=== PATIENT | male | born 2000 | race Caucasian/White ===

== ENCOUNTER 2022-04-08 10:01 | Emergency (ER) | payer OTHER, SELFPAY ==
[2022-04-08 10:23] VITALS: BP 144/82; PULSE 108; RESP 18; TEMP 38.8; O2SAT 99
--- NOTE | 2022-04-08 10:38 | ED.URI ---
HPI - URI/Sore Throat General Chief Complaint: Upper Respiratory Infection Stated Complaint: sorethroat,cough,fever Time Seen by Provider: 04/08/22 10:25 Source: patient Mode of arrival: ambulatory Limitations: no limitations History of Present Illness HPI Narrative: Patient presents today complaining of sore throat, cough, postnasal drip, body aches, fever up to 100 since yesterday. He has been taking ibuprofen with some relief. Currently rates pain 4/10. History of tonsillectomy. Reports recent contact with persons diagnosed with COVID-19. He has been vaccinated against COVID-19. Review of Systems Review of Systems: CONSTITUTIONAL: Denies chills, or sweats.+ Fever, body aches EYES: Denies visual changes, redness, or discharge. ENT: Denies rhinorrhea, congestion, or otalgia.+ Sore throat, postnasal drip CARDIOVASCULAR: Denies chest pain, palpitations, or edema. RESPIRATORY: Denies dyspnea.+ Cough GASTROINTESTINAL: Denies abdominal pain, nausea, vomiting, or diarrhea. GENITOURINARY: Denies dysuria or hematuria. SKIN: Denies rash, itching, or wounds. MUSCULOSKELETAL: Denies back pain, joint pain, or myalgia. NEUROLOGIC: Denies headache, numbness, tingling, or weakness. PSYCH: Denies depression or anxiety. [facility] Surgical History Surgical History (Updated 04/08/22 @ 10:40 by Sonia Reed, [facility], ) Hx of tonsillectomy Comments At time of signature, I have reviewed and agree with nursing past medical, surgical, social and family history unless otherwise noted. Please see nursing chart for further information. There is no relevant family history pertinent to the presenting complaint Exam Narrative: GENERAL: Well-appearing, well-nourished, and in no acute distress. HEAD: Normocephalic, atraumatic. EYES: EOMI. No redness or drainage. Conjunctivae normal. ENT: Mucous membranes pink and moist. Nares clear. No rhinorrhea. TMs normal bilaterally. Throat mildly erythematous without edema or exudate. Uvula midline. NECK: Normal AROM. Supple. No lymphadenopathy. CHEST: No respiratory distress. Clear to auscultation. HEART: Regular rate and rhythm. No murmur appreciated. Normal peripheral pulses. EXTREMITIES: Normal range of motion. No edema. SKIN: Warm, dry, no rash. Capillary refill normal. Normal skin turgor. NEURO: No focal deficits. Alert and oriented x3. Gait steady. PSYCH: Normal affect. No signs of depression or anxiety. Course Course Emergency Course: Discussed lab results with patient. He would like a PCR test for COVID. Level of Care: Express Care Visit Vital Signs Vital signs: Vital Signs Temperature 102 F H 04/08/22 10:23 Pulse Rate 108 H 04/08/22 10:23 Respiratory Rate 18 04/08/22 10:23 Blood Pressure 144/82 H 04/08/22 10:23 Pulse Oximetry 99 04/08/22 10:23 Oxygen Delivery Room Air 04/08/22 10:23 Temperature 102 F H 04/08/22 10:23 Pulse Rate 108 H 04/08/22 10:23 Respiratory Rate 18 04/08/22 10:23 Blood Pressure 144/82 H 04/08/22 10:23 Pulse Oximetry 99 04/08/22 10:23 Oxygen Delivery Room Air 04/08/22 10:31 Reviewed. Pt has been instructed to follow up with his PCP regarding his elevated blood pressure today. MDM - URI/Sore Throat Differential Diagnosis Differential diagnosis: Likely upper respiratory infection, viral infection, influenza, pharyngitis and other (COVID-19, strep throat) Lab Data Attestation: I reviewed the patient's lab results. Labs: Lab Results 04/08/22 Range/Units 10:29 POC SARS CoV-2 Ag Negative (Negative) Influenza A Screen Negative Reference Range: Negative Influenza B Screen Negative Reference Range: Negative Strep Screen Presumptive Negative *(Reference Range: Negative)* Strep Screen Positive Group A Strep
[2022-04-08 19:46] LABS: SARS-CoV-2 RNA PCR Positive
== END 2022-04-08 11:14 | disposition home or self-care (01) ==
PROVIDERS: Emergency Provider Nurse Practitioner
DX: U07.1 COVID-19 (principal)
CPT/HCPCS: 87081; 87426; 87804; 87880; 99203; C9803; G0463; U0003; U0005